=== PATIENT | male | born 1950 | race Caucasian/White ===

== ENCOUNTER 2016-12-01 11:42 | Emergency (ER) | payer OTHER, MEDICARE ==
[~2016-12-01] VITALS: Ht 167.6 cm; Wt 75.0 kg
[2016-12-01] MEDS ORDERED: HUMULIN (11:49)
[2016-12-01] MEDS ORDERED: NORT10CA PO (11:49)
[2016-12-01] MEDS ORDERED: GLIP5TAB12 PO (11:49)
[2016-12-01] MEDS ORDERED: PROP80CA2 PO (11:49)
[2016-12-01] MEDS ORDERED: CLOPIDOGREL 75MG TABLET PO ONE (12:00)
[2016-12-01] MEDS ORDERED: NITROGLYCERIN 0.4MG TABLET SL SL PRN (12:00)
[2016-12-01 12:17] LABS: BASOPHILS % 0.8 % (0.0-2.0); EOSINOPHILS % 0.7 % (0.0-5.0); HEMATOCRIT. 42.4 % (42.0-52.0); HEMOGLOBIN. 14.9 g/dL (14.0-18.0); LYMPHOCYTES % 45.6 % (20.0-50.0); MEAN CORPUSCULAR HEMOGLOBIN 31.8 pg (28.0-32.0); MEAN CORPUSCULAR VOLUME 90.4 fL (80.0-94.0); MEAN PLATELET VOLUME 8.1 fl (7.4-10.4); MONOCYTES % 7.2 % (2.0-8.0); NEUTROPHILS % 45.7 % (40.0-76.0); PLATELET 159 x1000/uL (130-400); RED BLOOD CELL COUNT 4.69 mill/uL (4.7-6.1); RED CELL DISTRIBUTION WIDTH 13.5 % (11.6-14.6)
[2016-12-01 12:18] LABS: CHLORIDE 101 mEq/L (98-107)
[2016-12-01 12:20] LABS: INR 1.1; PROTHROMBIN TIME 11.7 sec
[2016-12-01 12:24] LABS: CARBON DIOXIDE 27 mEq/L (21-32)
[2016-12-01 12:28] LABS: TROPONIN I < 0.02 ng/mL (0.00-0.04)
[2016-12-01 14:44] VITALS: BP 133/69
== END 2016-12-01 15:07 | disposition left against medical advice (07) ==
LOC: ER 11:59
DX: I20.0 Unstable angina (principal); E11.65 Type 2 diabetes mellitus with hyperglycemia; I10 Essential (primary) hypertension; K76.9 Liver disease, unspecified; Z79.4 Long term (current) use of insulin; Z88.6 Allergy status to analgesic agent
CPT/HCPCS: 36415; 71010; 80053; 83880; 84484; 85025; 85610; 93005; 99285; Z7610